=== PATIENT | male | born 1970 | race Caucasian/White ===

== ENCOUNTER 2016-11-13 10:26 | Emergency (ER) | payer MEDICAID ==
[~2016-11-13] VITALS: Ht 175.3 cm; Wt 72.6 kg
[~2016-11-13 10:26] MED LIST: VALIUM
[2016-11-13] MEDS ORDERED: SODIUM CHLORIDE 0.9% 1,000 ML IV ONE (10:36)
[2016-11-13] MEDS ORDERED: LORazepam 2MG/ML-1ML VIAL IV ONE (10:45)
[2016-11-13 12:02] VITALS: BP 109/67
== END 2016-11-13 13:50 | disposition home or self-care (01) ==
LOC: EDBD 10:26 → ER 10:34
DX: R56.9 Unspecified convulsions (principal); F41.9 Anxiety disorder, unspecified; F17.210 Nicotine dependence, cigarettes, uncomplicated; F12.10 Cannabis abuse, uncomplicated; F11.10 Opioid abuse, uncomplicated
CPT/HCPCS: 70450; 96361; 96374; 99284; J2060; J7030